=== PATIENT | male | born 1960 | race Caucasian/White ===

== ENCOUNTER → 2024-03-01 06:25 | Day surgery (SDC) | payer OTHER, SELFPAY ==
[2024-03-01 07:11] LABS: Glucose - Point of Care 134 mg/dl (70-99)
== END ==
LOC: GI 06:25
PROVIDERS: ATTENDING PHYSICIAN Internal Medicine
DX: K57.30 Diverticulosis of large intestine without perforation or abscess without bleeding (principal); K64.8 Other hemorrhoids; R19.5 Other fecal abnormalities
CPT/HCPCS: 45378; 82962